=== PATIENT | female | born 1990 | race Caucasian/White ===

== ENCOUNTER 2022-04-23 16:57 | Emergency (ER) | payer OTHER, SELFPAY ==
[2022-04-23 17:09] VITALS: BP 119/69; PULSE 84; RESP 15; TEMP 36.6; O2SAT 100; BMI 28.8
--- NOTE | 2022-04-23 17:14 | DI.US.S_ITS ---
PROCEDURE: US OB <= 14 WEEKS FETUS INDICATIONS: 7 weeks ,bleeding ,follow up US TECHNIQUE: Real-time scanning was performed of the fetus and maternal pelvic organs, with image documentation. Endovaginal scanning was also performed to better visualize the fetus and maternal ovaries. COMPARISON: No priors available FINDINGS: Uterus appropriate in size. Endometrial thickness measures 8 mm. No evidence of intrauterine . Both ovaries appropriate in size and echotexture. No evidence of adnexal mass. No free fluid. IMPRESSION: No evidence of intrauterine . Differential possibilities include normal early , missed , and non-visualized ectopic . Approved by: Julio Lamar M.D. on 04/23/2022 at 18:08
[2022-04-23 18:11] LABS: Add Manual Diff / Slide Review NO; Basophils Absolute Auto 0 /uL (0-100); Basophils Percent Auto 0.3 % (0-2); Eosinophils Absolute Auto 0 /uL (0-450); Eosinophils Percent Auto 0.8 % (2-4); Hematocrit 35.7 % (36-46); Lymphocytes Absolute Auto 1700 /uL (1100-4500); Lymphocytes Percent Auto 29.1 % (25-40); Mean Corpuscular HGB Conc 33.6 % (30-36); Mean Corpuscular Hemoglobin 29.4 PG (26-34); Mean Corpuscular Volume 87.4 fL (80-100); Monocytes Absolute Auto 500 /uL (0-900); Monocytes Percent Auto 8.2 % (3-14); Neutrophils Absolute Auto 3500 /uL (1500-7000); Neutrophils Percent Auto 61.6 % (50-75); Platelet Count 248 X10^3/uL (150-400); Red Blood Cell Count 4.08 X10^6/uL (4.0-5.2); Red Cell Distribution Width 12.9 % (11.6-14.8); White Blood Cell Count 5.7 X10^3/uL (4.5-11.0)
[2022-04-23 18:17] LABS: Alanine Aminotransferase 16 IU/L (<35); Albumin 4.6 g/dL (3.5-5.0); Albumin Globulin Ratio 1.4 (1.0-2.8); Alkaline Phosphatase 86 U/L (38-126); Aspartate Aminotransferase 22 IU/L (14-36); BUN Creatinine Ratio 14.5 (6-22); Bilirubin Total 0.3 mg/dL (0.2-1.3); Blood Urea Nitrogen 11 mg/dL (7-17); Calcium 9.4 mg/dL (8.4-10.2); Carbon Dioxide 30 mmol/L (22-32); Chloride 100 mmol/L (98-107); Estimated Glomerular Filt Rate > 60 mL/min (>60); Globulin 3.4 g/dL (1.7-4.1); Glucose 108 mg/dL (70-100); HEMOLYSIS < 15 (0-50); Potassium 3.9 mmol/L (3.4-5.1); Sodium 138 mmol/L (137-145)
[2022-04-23 18:32] LABS: HCG Quantitative /Beta subunit 1468.5 mIU/mL
--- NOTE | 2022-04-23 19:27 | ED.GENADULT ---
HPI - General Adult General Chief complaint: Vaginal Bleeding Stated complaint: 8 weeks , Bleeding Time Seen by Provider: 04/23/22 18:22 Source: patient Mode of arrival: Ambulatory Limitations: no limitations History of Present Illness HPI narrative: Patient is a 31-year-old female. at approximately 8 weeks EGA. Is here for evaluation of several days of vaginal bleeding. No cramping. No urinary symptoms. She saw an OB provider the end of last week and had her beta-hCG drawn. She states she can not remember the exact number but it was drawn again yesterday and was lower than before. She continues to have bleeding. She contacted that OB provider who advised that she come for an ultrasound. Related Data Allergies Allergy/AdvReac Type Severity Reaction Status Date / Time No Known Drug Allergies Allergy Verified 04/23/22 17:09 Review of Systems Constitutional Constitutional: Reports system reviewed and no additional complaints, except as documented Gastrointestinal Gastrointestinal: Reports system reviewed and no additional complaints, except as documented Genitourinary Genitourinary: Reports system reviewed and no additional complaints, except as documented Patient History Social History Smoking Status: Unknown if ever smoked Smoking Status: Unknown if ever smoked alcohol intake frequency: holidays/special occasions only Substance Use Type: does not use Exam Initial Vital Signs Initial Vital Signs: Vital Signs Temperature 97.9 F 04/23/22 17:09 Pulse Rate 84 04/23/22 17:09 Respiratory Rate 15 04/23/22 17:09 Blood Pressure 119/69 04/23/22 17:09 Pulse Oximetry 100 04/23/22 17:09 Oxygen Delivery Method 04/23/22 17:09 Resp Effort & Inspection: normal respiratory effort Cardio Rate: regular rate GI Inspection: non-distended Course Orders Ordered: ED Orders 04/23/22 17:14 US OB <= 14 weeks fetus Stat 04/23/22 17:40 Complete Blood Count AUTO DIFF Stat Comprehensive Metabolic Panel Stat HCG Quantitative /Beta subunit Stat Type and Screen Stat Vital Signs Vital signs: Vital Signs - 8 hr 04/23/22 19:33 Pulse Rate 82 Respiratory Rate 15 Blood Pressure 110/78 Medical Decision Making Lab Data Lab results reviewed: Yes I reviewed the patient's lab results. Result diagrams: 04/23/22 17:40 04/23/22 17:40 Labs: Lab Results 04/23/22 04/23/22 04/23/22 Range/Units 17:40 17:40 17:40 WBC 5.7 (4.5-11.0) X10^3/uL RBC 4.08 (4.0-5.2) X10^6/uL Hgb 12.0 (12.0-16.0) g/dL Hct 35.7 L (36-46) % MCV 87.4 (80-100) fL MCH 29.4 (26-34) PG MCHC 33.6 (30-36) % RDW 12.9 (11.6-14.8) % Plt Count 248 (150-400) X10^3/uL Neut % (Auto) 61.6 (50-75) % Lymph % (Auto) 29.1 (25-40) % Riley % (Auto) 8.2 (3-14) % Eos % (Auto) 0.8 L (2-4) % Baso % (Auto) 0.3 (0-2) % Neut # (Auto) 3500 (3360-7532) /uL Lymph # (Auto) 1700 (6699-8734) /uL Riley # (Auto) 500 (0-900) /uL Eos # (Auto) 0 (0-450) /uL Baso # (Auto) 0 (0-100) /uL Sodium 138 (137-145) mmol/L Potassium 3.9 (3.4-5.1) mmol/L Chloride 100 (98-107) mmol/L Carbon Dioxide 30 (22-32) mmol/L BUN 11 (7-17) mg/dL Creatinine 0.76 (0.52-1.04) mg/dL Estimated GFR > 60 (>60) mL/min BUN/Creatinine Ratio 14.5 (6-22) Glucose 108 H (70-100) mg/dL Calcium 9.4 (8.4-10.2) mg/dL Total Bilirubin 0.3 (0.2-1.3) mg/dL AST 22 (14-36) IU/L ALT 16 (<35) IU/L Alkaline Phosphatase 86 (38-126) U/L Total Protein 8.0 (6.3-8.2) g/dL Albumin 4.6 (3.5-5.0) g/dL Globulin 3.4 (1.7-4.1) g/dL Albumin/Globulin Ratio 1.4 (1.0-2.8) HCG, Quant 1468.5 mIU/mL Blood Type O Positive Antibody Screen Negative Imaging Data US - OB: Radiologist's Impression: [address] [address] Ultrasound Report Signed Patient: Ro Corley V MR#: [id number] : 1990 Acct:[id number] Age/Sex: 31 / F Date of Service: 04/23/22 Loc: ED Accession Number: [id number]? ? Procedure: US OB <= 14 weeks fetus Ordering Provider: Adelaide Gramajo D.O. PROCEDURE:? US OB <= 14 WEEKS FETUS ? INDICATIONS:? 7 weeks ,bleeding ,follow up US ? TECHNIQUE:? Real-time scanning was performed of the fetus and maternal pelvic organs, with image documentation.? Endovaginal scanning was also performed to better visualize the fetus and maternal ovaries.? ? COMPARISON:? No priors available ? FINDINGS:? ? Uterus appropriate in size.? Endometrial thickness measures 8 mm.? No evidence of intrauterine . ? Both ovaries appropriate in size and echotexture.? No evidence of adnexal mass.? No free fluid. ? IMPRESSION:? No evidence of intrauterine .? Differential possibilities include normal early , missed , and non-visualized ectopic . ? ? ? Approved by: Julio Lamar M.D. on 04/23/2022 at 18:08? MDM Narrative Medical decision making narrative: Patient is Rh positive. Ultrasound today does not show any signs of an intrauterine however her beta hCG is below the discriminatory zone. She states she did have an ultrasound of the end of last week where she was told that there was a ?sac? but no other signs of a . Advised her today that given her beta HCG this could mean that she is very early on in however given the ultrasound that she reports the end of last week and that her beta hCG is decreasing this is most likely miscarriage. Advised that she contact her OB provider for a follow-up on Tuesday. She was given return precautions. She expressed understanding and agreement. Discharge Plan Departure Patient Disposition: Home Clinical Impression: Incomplete miscarriage Instructions: DI for Miscarriage Activity Restrictions/Additional Instructions: I do recommend that on Tuesday you contact your investment sales assistant doctor for a follow-up. Return to the emergency department for any new or worsening symptoms. Stand Alone Forms: Patient Portal/API
[2022-04-23 19:33] VITALS: BP 110/78; PULSE 82; RESP 15
== END 2022-04-23 19:35 | disposition home or self-care (01) ==
PROVIDERS: Emergency Medicine; Emergency Provider Emergency Medicine
DX: O03.4 Incomplete spontaneous abortion without complication (principal)
CPT/HCPCS: 36415; 76801; 80053; 84702; 85025; 86850; 86900; 86901; 99283

== ENCOUNTER → 2022-08-18 12:58 | Outpatient (CLI) | payer OTHER, SELFPAY ==
[2022-08-18 13:46] LABS: Add Manual Diff / Slide Review SLIDE REVIEW; Basophils Absolute Auto 0 /uL (0-100); Basophils Percent Auto 0.4 % (0-2); Eosinophils Absolute Auto 0 /uL (0-450); Eosinophils Percent Auto 0.6 % (2-4); Hematocrit 34.7 % (36-46); Lymphocytes Absolute Auto 1400 /uL (1100-4500); Mean Corpuscular HGB Conc 34.7 % (30-36); Mean Corpuscular Hemoglobin 30.4 PG (26-34); Mean Corpuscular Volume 87.6 fL (80-100); Monocytes Absolute Auto 500 /uL (0-900); Monocytes Percent Auto 7.4 % (3-14); Neutrophils Absolute Auto 5300 /uL (1500-7000); Neutrophils Percent Auto 72.6 % (50-75); Platelet Count 216 X10^3/uL (150-400); Red Blood Cell Count 3.96 X10^6/uL (4.0-5.2); Red Cell Distribution Width 12.7 % (11.6-14.8); White Blood Cell Count 7.2 X10^3/uL (4.5-11.0)
[2022-08-18 14:17] LABS: RBC Morphology Normal Morphology
[2022-08-18 20:29] LABS: Urine N gonorrhoeae NOT DETECTED
[2022-08-18 21:10] LABS: Urine Chlamydia NOT DETECTED
[2022-08-19 11:36] LABS: Varicella IgG Antibody 887 index (Immune >165)
[2022-08-19 15:51] LABS: Hepatitis B Surface Antigen NEGATIVE s/c (NEGATIVE); Labcorp Hemoglobin (Hb) A1c 5.3 % (4.8-5.6)
[2022-08-19 16:08] LABS: HIV 1 & 2 Ab/Ag 4th Gen Combo NEGATIVE (NEGATIVE); Hep C Virus Ab w/Reflex Quant NEGATIVE s/c (NEGATIVE)
[2022-08-20 04:35] LABS: RPR Screen Non Reactive (Non Reactive)
== END ==
PROVIDERS: PCP Registered Nurse; Referring Provider Family Medicine; Visit Provider Family Medicine
DX: Z34.81 Encounter for supervision of other normal pregnancy, first trimester (principal); Z3A.08 8 weeks gestation of pregnancy
CPT/HCPCS: 36415; 80055; 83036; 86787; 86803; 86850; 86900; 86901; 87389; 87491; 87591

== ENCOUNTER → 2022-09-02 16:41 | Outpatient (CLI) | payer OTHER, SELFPAY ==
--- NOTE | 2022-09-02 16:43 | DI.US.S_ITS ---
PROCEDURE: US OB <= 14 WEEKS FETUS INDICATIONS: DATING OUTSIDE/PRIOR DATING DATA: Last menstrual period (LMP): 06/17/2022. LMP-based estimated date of delivery (MIKA): 03/24/2023. First dating scan (date and location): 09/02/2022. Estimated date of delivery (MIKA) from first dating scan: 03/22/2023. The calculations are made using the clinical MIKA of 03/24/2023. TECHNIQUE: Real-time scanning was performed of the fetus and maternal pelvic organs, with image documentation. Endovaginal scanning was also performed to better visualize the fetus and maternal ovaries. COMPARISON: [facility], OB <= 14 WEEKS FETUS, 04/23/2022, 17:58. FINDINGS: Embryo: Enoch-rump length measuring 4.4 cm corresponding to gestational age of 11 weeks 2 days Heart rate: 169 bpm A yolk sac is seen. No perigestational hemorrhage. Maternal organs: Ovaries are within normal limits. Probable right corpus luteum.. IMPRESSION: 1. Yeager living intrauterine at 11 weeks 2 days based on today's crown rump length. 2. No perigestational hemorrhage. We strive to produce accurate, complete, and clear reports of imaging services. To assist us in improving patient care, this report was composed using standard report templates and voice recognition software. Therefore, it may contain abnormal punctuation, insertions and/or omissions. Occasional wrong-word or sound-alike substitutions may occur. Though we review the report and make efforts to correct it, we do recommend that the report be read carefully in proper context to recognize any text inaccuracies. Dictated by: Uri Sena M.D. on 09/03/2022 at 12:40 Approved by: Uri Sena M.D. on 09/03/2022 at 12:44
== END ==
PROVIDERS: PCP Registered Nurse; Referring Provider Family Medicine; Visit Provider Family Medicine
DX: Z34.81 Encounter for supervision of other normal pregnancy, first trimester (principal); Z3A.11 11 weeks gestation of pregnancy
CPT/HCPCS: 76801; 76817

== ENCOUNTER → 2022-11-05 16:33 | Outpatient (CLI) | payer OTHER, SELFPAY ==
--- NOTE | 2022-11-05 16:34 | DI.US.S_ITS ---
PROCEDURE: US OB >= 14 WEEKS FETUS INDICATIONS: ANATOMY SCAN OUTSIDE/PRIOR DATING DATA: Last menstrual period (LMP): 07/08/2022. LMP-based estimated date of delivery (MIKA): 03/24/2023. First dating scan (date and location): 09/02/2022. Estimated date of delivery (MIKA) from first dating scan: 03/22/2023. The calculations are made using the clinical MIKA of 03/24/2023. TECHNIQUE: Real-time scanning was performed of the fetus, with image documentation and biometric measurements. Endovaginal scanning: Not performed COMPARISON: None. FINDINGS: General: A single living intrauterine gestation is present. Presentation: Posterior. Placenta: Placental position is posterior, without previa. Amniotic fluid index: 13.4 cm, normal range is 5-24 cm. heart rate: 147 beats per minute. Maternal cervical canal: 5.2 cm long. Normal lower limit is 2.5 cm. biometrics: Biparietal diameter: 4.9 centimeters, 20 weeks 6 days Head circumference: 17.9 centimeters, 20 weeks 2 days Abdominal circumference: 15 centimeters, 20 weeks 2 days Femur length: 3.3 centimeters, 20 weeks 2 days Clinically estimated gestational age: 20 weeks 1 day Composite gestational age from present scan: 20 weeks 3 days Estimated weight and percentile: 346 grams, 55th percentile Anatomic survey: Neuro: Ventricles are non-dilated at less than 10 mm. Cisterna magna is normal at 3-11 mm. Cerebellum is normal in size and morphology. Nuchal skin fold: Normal at less than 6 mm between 14-21 weeks gestational age. Face: Nose and lips, facial profile are normal. Spine: No evidence for spina bifida. Heart: 4-chambered heart is present, with normal ventricular outflow tracts. Diaphragm: Diaphragm is intact. Stomach: Left-sided stomach is present. Kidneys: Bilateral pelvocaliectasis. Normal is less than 5 mm in 2nd trimester, less than 7 mm in 3rd trimester. Cord: 3-vessel cord has orthotopic insertion. Bladder: Normal in size. Extremities: All 4 extremities identified. IMPRESSION: Single living intrauterine at 20 weeks 1 day, MIKA of 03/24/2023. Bilateral renal pelvic caliectasis. Otherwise, unremarkable anatomy survey. Estimated weight 346 grams, 55th percentile. We strive to produce accurate, complete, and clear reports of imaging services. To assist us in improving patient care, this report was composed using standard report templates and voice recognition software. Therefore, it may contain abnormal punctuation, insertions and/or omissions. Occasional wrong-word or sound-alike substitutions may occur. Though we review the report and make efforts to correct it, we do recommend that the report be read carefully in proper context to recognize any text inaccuracies. Dictated by: Bull Gomez M.D. on 11/05/2022 at 18:43 Approved by: Bull Gomez M.D. on 11/05/2022 at 18:46
== END ==
PROVIDERS: PCP Registered Nurse; Referring Provider Family Medicine; Visit Provider Family Medicine
DX: Z34.82 Encounter for supervision of other normal pregnancy, second trimester (principal); Z3A.20 20 weeks gestation of pregnancy
CPT/HCPCS: 76811

== ENCOUNTER → 2022-12-08 07:14 | Outpatient (CLI) | payer OTHER, SELFPAY ==
--- NOTE | 2022-12-08 07:14 | DI.US.S_ITS ---
PROCEDURE: US OB FOLLOW UP INDICATIONS: B renal pelviectasis of fetus 11/05 OUTSIDE/PRIOR DATING DATA: Last menstrual period (LMP): 06/17/2022. LMP-based estimated date of delivery (MIKA): 03/24/2023. First dating scan (date and location): 09/02/2022. Estimated date of delivery (MIKA) from first dating scan: 03/22/2023. The calculations are made using the clinical MIKA of 03/24/2023. TECHNIQUE: Real-time scanning was performed of the fetus, with image documentation. Endovaginal scanning: Not performed COMPARISON: None. FINDINGS: A single living intrauterine gestation is present. Presentation: Vertex. Placenta: Placental position is posterior, without previa. Amniotic fluid index: 15.5 cm, normal range is 5-24 cm. Single deepest vertical pocket is 152 cm. heart rate: 3.2 beats per minute. Maternal cervical canal: 3.2 cm long. Normal lower limit is 2.5 cm. Clinically estimated gestational age: 24 weeks 6 days The right renal pelvis measures 2.9 millimeters. The left renal pelvis measures 3.4 millimeters. Normal urinary bladder and stomach/abdomen. IMPRESSION: Single living intrauterine at 24 weeks 6 days, MIKA 03/24/2023. Normal renal pelvic measurements on today's examination. Dictated by: Bull Gomez M.D. on 12/08/2022 at 9:51 Approved by: Bull Gomez M.D. on 12/08/2022 at 9:53
== END ==
PROVIDERS: PCP Registered Nurse; Referring Provider Family Medicine; Visit Provider Family Medicine
DX: O35.8XX0 Maternal care for other (suspected) fetal abnormality and damage, not applicable or unspecified; Z3A.24 24 weeks gestation of pregnancy
CPT/HCPCS: 76816